=== PATIENT | female | born 2000 | race Caucasian/White ===

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

== ENCOUNTER → 2019-01-28 | Outpatient (CLI) | payer BC ==
--- NOTE | 2019-01-28 19:42 | Diagnostic Imaging Report ---
INDICATION: Left flank pain. EXAMINATION: KUB at 7:40 p.m. FINDINGS: Lung bases are clear. Bowel gas pattern is normal. There is a moderate amount of stool throughout the colon. IMPRESSION: Fecal stasis. No acute abnormality is seen. Dictated by: Dictated on workstation # [id number]
== END ==
LOC: RAD 19:25
PROVIDERS: ATTEND Physician Assistant
DX: N20.0 Calculus of kidney (principal); K56.41 Fecal impaction
CPT/HCPCS: 74019

== ENCOUNTER → 2020-03-08 | Outpatient (CLI) | payer BC | LOC: LABNPT 08:27 | PROVIDERS: ATTEND Internal Medicine | DX: R05 Cough (principal); R51.9 Headache, unspecified; R07.89 Other chest pain; Z20.828 Contact with and (suspected) exposure to other viral communicable diseases | CPT/HCPCS: 87635 ==

== ENCOUNTER → 2021-04-12 | Outpatient (CLI) | payer BC | LOC: LABNPT 08:29 | PROVIDERS: ATTEND Internal Medicine | DX: Z20.822 Contact with and (suspected) exposure to COVID-19 (principal) | CPT/HCPCS: 87635 ==